=== PATIENT | female | born 1990 | race Caucasian/White ===

== ENCOUNTER 2018-04-17 21:36 | Outpatient (CLI) | payer SELFPAY ==
[~2018-04-17] VITALS: Ht 183.6 cm; Wt 73.0 kg
[2018-04-17 21:56] VITALS: BP 134/75
[2018-04-17 22:06] LABS: MICROSCOPIC INDICATED
== END 2018-04-17 23:31 | disposition home or self-care (01) ==
LOC: LDOP 21:36
PROVIDERS: ATTEND Obstetrics & Gynecology
DX: O26.892 Other specified pregnancy related conditions, second trimester (principal); R10.9 Unspecified abdominal pain; Z3A.25 25 weeks gestation of pregnancy
CPT/HCPCS: 36415; 59025; 81001; 82731; 87086; 99201; G0463